=== PATIENT | female | born 1940 | race Caucasian/White ===

== ENCOUNTER 2019-11-23 01:18 | Inpatient (IN) | payer MEDICARE, BC ==
[2019-11-23] VITALS (16 sets, daily range): BP systolic 109–219; BP diastolic 76–102
[~2019-11-23] VITALS: Ht 167.6 cm; Wt 54.0 kg
[2019-11-23] MEDS ORDERED: IV NORMAL SALINE 1000ML BAG 1,000 ML IV SCH (02:00)
[2019-11-23] MEDS ORDERED: MIDAZOLAM HCL 50 MG in IV NORMAL SALINE 50ML 50 ML IV PRN (02:00)
[2019-11-23] MEDS ORDERED: DIGOXIN IV 500 MCG/2 ML AMPUL. IV ONE (02:30)
[2019-11-23] MEDS ORDERED: POLYVINYL ALCOHOL 1.4% OPHTH SOLUTION 15ML BOTTLE. OU PRN (02:30)
[2019-11-23 04:29] LABS: HEMATOCRIT 38.8 % (36.0-47.0); HEMOGLOBIN 13.4 g/dL (12.0-15.5); RED BLOOD COUNT 3.99 x10^6/uL (3.50-5.40); RED CELL DISTRIBUTION WIDTH 13.5 % (11.5-14.5); WHITE BLOOD COUNT 8.9 x10^3/uL (4.0-11.0)
[2019-11-23 04:43] LABS: CALCIUM 8.3 mg/dL (8.5-10.1); CREATININE 0.6 mg/dL (0.6-1.0); GFR 96.7; POTASSIUM 3.7 mmol/L (3.5-5.1)
[2019-11-23] MEDS ORDERED: BUSP10TA PO (05:05)
--- NOTE | 2019-11-23 05:26 | NUR ---
directed admit from [facility]- "mass head bleed". patient is ventilated, sedated with propofol. Pt is unresponsive, no gag Reflex, pupils unequal and non reactive. spoke with family- , At this time they would like to have her cont to be a full code until neurosurgery sees her in am. Once that conversation occurs family will re discuss code status
[2019-11-23] MEDS: PROPOFOL 100 ML IV PRN ×2 (05:45→07:45)
--- NOTE | 2019-11-23 08:29 | RAD ---
PORTABLE CHEST 1V History: Intubation, OG tube Comparison: 11/22/2019 Findings: Single view of the chest is submitted. There is enteric catheter coursing into the region of the stomach. There is endotracheal tube with tip about 3 cm from duyen. Cardiac silhouette is stable. No convincing pneumothorax or significant pleural fluid is identified. There is likely mild left base atelectasis. There is thoracolumbar scoliosis. There is prominent lucency in the visualized abdomen including beneath right hemidiaphragm. Impression: 1. There is prominent abnormal lucency of the visualized abdomen, concerning for free air which would be better evaluated by CT. 2. There is enteric catheter and endotracheal tube as described. Critical results were discussed with patient's nurse Steph at 11/23/2019 8:23 AM, to inform doctor of findings. Electronically signed by: Ralph Parra MD (11/23/2019 8:26 AM) [id number]
[2019-11-23] MEDS ORDERED: FAMOTIDINE 20 MG/2 ML VIAL IVP SCH (09:00)
--- NOTE | 2019-11-23 09:15 | HP ---
ADMIT DATE: 11/23/2019 HISTORY OF PRESENT ILLNESS: The patient is a 79-year-old female patient who apparently was brought to the Emergency Room of [facility] with altered mental status. Apparently, she was watching TV and after her went to the bathroom, her attendant could not find his ; however, he found her unconscious by the closet door. She was having snoring, respiration. Fire and ambulance dispatched to location. The patient received CPR by fire department ambulance at the scene when she had lost the pulse. The patient had return of respirations after CPR. The patient arrived to the Emergency Room with a spontaneous snoring, respiration, tachycardic pulse, has had a nasal trumpet in place. Monitor showed that she has irregular rhythm and rate consistent with atrial fibrillation. She appears to be posturing in a decerebrate pose, no response to noxious stimuli. Her left pupil was dilated, not responsive to light. She also has no gag response. She was intubated and endotracheal tube placement was confirmed by auscultation and chest and abdomen as well as capnography. She apparently had had a CT scan of the head, which showed that the patient has a very large left cerebral hemispheric intraparenchymal hemorrhage with intraventricular extension. The lateral and fourth ventricles are dilated. The suprasellar cistern is partially effaced suggesting developing uncal herniation. There is mass effect with 6 mm of left to right midline shift and the patient was transferred to [facility] Intensive Care Unit to consult the neurologist and neurosurgeon. PAST MEDICAL HISTORY: Significant for hypertension. ALLERGIES: SHE IS ALLERGIC TO SULFA AND CODEINE. MEDICATIONS: She is on no medication at home. FAMILY HISTORY: Noncontributory. SOCIAL HISTORY: She is and lives with her . PHYSICAL EXAMINATION: GENERAL: On arrival to the ICU at [facility], she obviously was unresponsive, intubated, mechanically ventilated and sedated. VITAL SIGNS: Her heart rate on arrival was around 128, irregularly irregular; blood pressure was 157/98; temperature 97.5; respiratory rate was 16 and oxygen saturation was 100% on FiO2 of 40%. HEAD, EYES, EARS, NOSE AND THROAT: Showed normocephalic, atraumatic. She has orotracheal and orogastric tube in place. NECK: Supple. CARDIAC: Normal first and second heart sounds. No gallop, rub or murmur. CHEST: Clear to auscultation. No crepitation or rhonchi. ABDOMEN: Distended, soft, nontender. NEUROLOGIC: Obviously, she is unresponsive to verbal stimulation. She does not open eyes spontaneously. LABORATORY DATA: Her lab work on arrival to the [facility] showed a white cell count of 8900, hemoglobin 13, hematocrit 39, MCV 97 and platelet count of 138,000. Serum sodium was 136, potassium 3.7, chloride 100, bicarbonate 28, anion gap of 8, BUN 20, creatinine 0.6, estimated GFR was 97 mL per minute. Her glucose was 147, calcium was 8.3, magnesium 2. She did have a chest x-ray, which showed that the endotracheal tube is in the right place as well as an NG tube in the stomach, lungs are clear. PLAN: To continue with mechanical ventilation. Await evaluation by the neurologist and neurosurgeon, although her overall prognosis is extremely poor due to massive left-sided intracerebral hemorrhage with uncal herniation. SARAH GARCIA MD DR: AJAY/azucena JOB#: [id number] / [id number]
--- NOTE | 2019-11-23 09:56 | PDOC2 ---
NEUROLOGY CONSULT Date of Admission Date of Admission DATE: 11/23/19 TIME: 09:48 Reason for Consult Reason for Consult: Cerebral hemorrhage Referring Physician Referring Physician: Dr. Garcia Source Source: Caregiver, Chart review History of Present Illness History of Present Illness The patient is a 79-year-old right-handed female whose that her slumped in the closet of their bedroom yesterday evening. She went to the [facility] emergency department and had head CT, as reviewed below. There is no history of stroke, seizure, head injury, but the patient does have hypertension and has been complaining of some headaches recently. Past Medical History Cardiovascular: HTN Past Surgical History Past Surgical History: , Hysterectomy Family History Family History: CVA Social History Social History , no alcohol or tobacco Current Medications Current Medications Current Medications Fentanyl Citrate 30 ml @ 0 mls/hr CONT PRN IV SEE PROTOCOL Last administered on 11/23/19at 02:47; Start 11/23/19 at 02:00 Propofol 100 ml @ 0 mls/hr CONT PRN IV SEE PROTOCOL Last administered on 11/23/19at 07:45; Start 11/23/19 at 02:00 Artificial Tears (Artificial Tears) 1 drop PRN Q1HR PRN OU DRY EYE; Start 11/23/19 at 02:30 Famotidine (Pepcid Vial) 20 mg BID IVP ; Start 11/23/19 at 09:00 Midazolam HCl 50 mg/Sodium Chloride 50 ml @ 0 mls/hr CONT PRN IV SEE PROTOCOL; Start 11/23/19 at 02:00 Sodium Chloride 1,000 ml @ 75 mls/hr [id number] IV Last administered on 11/23/19at 02:52; Start 11/23/19 at 02:00 Digoxin (Lanoxin) 500 mcg 1X ONCE IV Last administered on 11/23/19at 02:53; Start 11/23/19 at 02:30; Stop 11/23/19 at 02:31; Status DC Active Scripts Active Reported Buspirone Hcl 10 Mg Tablet 1 Tab PO BID Allergies Allergies: Coded Allergies: codeine (Verified Allergy, Unknown, 11/23/19) ROS Review of System Negative for fever, chills, weight loss, shortness of breath, chest pain, indigestion, hematochezia, melena, and dysuria. Full 14-point review of systems is negative. Physical Exam Physical Examination General: Well-developed, well-nourished, white female, in no acute distress HEENT: Normocephalic andatraumatic. Temporal arteriespulsatile and nontender. Neck: Supple without bruit, no meningismus Musculoskeletal: Stability:see neurologic. Gait exam:see neurologic. Tone:see neurologic.Strength:see neurologic. Neurological: Mental Status:Intubated, unresponsive. Does not make respiratory efforts for 30 seconds off the ventilator. Cranial Nerves:Pupils unreactive, no extraocular movements, no response to cold calorics or vestibular-ocular testing. Negative corneal reflex. There is no facial asymmetry. All other cranial related problems are negative except as mentioned before.Reflexes:0+ and symmetric with silent plantar responses. Motor: No response to pain. Coordination and gait:Not tested. Sensory:no response Vitals VITALS Vital Signs Date Time Temp Pulse Resp B/P (MAP) Pulse Ox O2 Delivery O2 Flow Rate FiO2 11/23/19 09:29 61 16 204/92 (129) 100 Ventilator 11/23/19 07:00 97.4 97.4 Labs Labs Laboratory Tests Test 11/23/19 04:20 White Blood Count 8.9 x10^3/uL (4.0-11.0) Red Blood Count 3.99 x10^6/uL (3.50-5.40) Hemoglobin 13.4 g/dL (12.0-15.5) Hematocrit 38.8 % (36.0-47.0) Mean Corpuscular Volume 97 fL (79-100) Mean Corpuscular Hemoglobin 34 pg (25-35) Mean Corpuscular Hemoglobin Concent 34 g/dL (31-37) Red Cell Distribution Width 13.5 % (11.5-14.5) Platelet Count 138 x10^3/uL (140-400) Sodium Level 136 mmol/L (136-145) Potassium Level 3.7 mmol/L (3.5-5.1) Chloride Level 100 mmol/L (98-107) Carbon Dioxide Level 28 mmol/L (21-32) Anion Gap 8 (6-14) Blood Urea Nitrogen 20 mg/dL (7-20) Creatinine 0.6 mg/dL (0.6-1.0) Estimated GFR (Cockcroft-Gault) 96.7 Glucose Level 147 mg/dL (70-99) Calcium Level 8.3 mg/dL (8.5-10.1) Magnesium Level 2.0 mg/dL (1.8-2.4) Laboratory Tests Test 11/23/19 04:20 White Blood Count 8.9 x10^3/uL (4.0-11.0) Red Blood Count 3.99 x10^6/uL (3.50-5.40) Hemoglobin 13.4 g/dL (12.0-15.5) Hematocrit 38.8 % (36.0-47.0) Mean Corpuscular Volume 97 fL (79-100) Mean Corpuscular Hemoglobin 34 pg (25-35) Mean Corpuscular Hemoglobin Concent 34 g/dL (31-37) Red Cell Distribution Width 13.5 % (11.5-14.5) Platelet Count 138 x10^3/uL (140-400) Sodium Level 136 mmol/L (136-145) Potassium Level 3.7 mmol/L (3.5-5.1) Chloride Level 100 mmol/L (98-107) Carbon Dioxide Level 28 mmol/L (21-32) Anion Gap 8 (6-14) Blood Urea Nitrogen 20 mg/dL (7-20) Creatinine 0.6 mg/dL (0.6-1.0) Estimated GFR (Cockcroft-Gault) 96.7 Glucose Level 147 mg/dL (70-99) Calcium Level 8.3 mg/dL (8.5-10.1) Magnesium Level 2.0 mg/dL (1.8-2.4) Images Images CT HEAD WITHOUT CONTRAST, [facility], 11/22 History: Comparison: None. Procedure: Axial images are obtained of the head from the skull base through the vertex without IV contrast. Findings: There is a large left cerebral hemisphere intraparenchymal hemorrhage. There is involvement of the left basal ganglia. The hemorrhage measures up to 7.5 cm AP by 5.47 m transverse by 6.7 cm craniocaudal. The hemorrhage has extended into the ventricular system, and both lateral ventricles, third, and fourth ventricles. The lateral ventricles and the fourth ventricle are prominent there is moderate edema surrounding and parenchymal hemorrhage. The suprasellar cistern is partially effaced. There is 6 mm of [id number] midline shift. There is underlying moderate hypoattenuation in the supratentorial white matter probably due to chronic small vessel ischemic disease. Bone windows demonstrate no acute calvarial abnormality. The visualized paranasal sinuses are clear. Mastoid air cells are well aerated. IMPRESSION: There is a very large left cerebral hemisphere intraparenchymal hemorrhage with intraventricular extension. The lateral and fourth ventricles are dilated. The suprasellar cistern is partially effaced suggesting developing uncal herniation. There is mass effect and 6 mm of [id number] midline shift. Assessment/Plan Assessment/Plan Impression: Massive left hemispheric hemorrhage. I believe she is brain , but cannot make this determination now as she is on propofol. Recommendations: Propofol is discontinued, wait 3 hours and then respiratory will perform a 10 minute apnea test. No purpose of repeat head scan, EEG, etc. Fully discussed with patient's family. Thank you for letting me help with the patient's care. WILLIAM RODRIGUEZ MD Nov 23, 2019 09:56
[2019-11-23 10:21] LABS: BASE EXCESS ABG 0 mmol/L (-3-3); HCO3 ABG 24 mmol/L (21-28); PCO2 ABG 40 mmHg (35-46); PO2 ABG 143 mmHg (65-108); SAT O2 ABG 99 % (92-99)
[2019-11-23 10:24] LABS: FIO2 ABG 40
[2019-11-23] MEDS ORDERED: hydrALAZINE 20 MG/ML VIAL. IVP PRN (10:30)
--- NOTE | 2019-11-23 11:40 | NUR ---
APNEA TEST RESULTS: NEGATIVE
[2019-11-23] MEDS ORDERED: MORPHINE SULFATE 4 MG/ML VIAL. IV PRN ×2 (12:00→12:15)
--- NOTE | 2019-11-23 13:28 | NUR ---
Patient's and family decided to withdraw care. Vent was removed, medication administered, 2L NC placed. Patient's TOD 1310 by this RN and Beth Thomas RN. Dr. Garcia, Dr. Serrano, Dr. Dwyer, and Nursing Manager Of Photography notified. Patient's daughter took possession of patient's Rosary beads and wedding ring. Multiple family members were at bedside, tearful, very supportive.
--- NOTE | 2019-11-23 15:44 | PDOC ---
PULMONARY PROGRESS NOTES Vitals Vital Signs Date Time Temp Pulse Resp B/P (MAP) Pulse Ox O2 Delivery O2 Flow Rate FiO2 11/23/19 12:30 98 16 183/82 (115) 100 Ventilator 11/23/19 07:00 97.4 97.4 Labs Laboratory Tests Test 11/23/19 04:20 11/23/19 10:15 White Blood Count 8.9 x10^3/uL (4.0-11.0) Red Blood Count 3.99 x10^6/uL (3.50-5.40) Hemoglobin 13.4 g/dL (12.0-15.5) Hematocrit 38.8 % (36.0-47.0) Mean Corpuscular Volume 97 fL (79-100) Mean Corpuscular Hemoglobin 34 pg (25-35) Mean Corpuscular Hemoglobin Concent 34 g/dL (31-37) Red Cell Distribution Width 13.5 % (11.5-14.5) Platelet Count 138 x10^3/uL (140-400) Sodium Level 136 mmol/L (136-145) Potassium Level 3.7 mmol/L (3.5-5.1) Chloride Level 100 mmol/L (98-107) Carbon Dioxide Level 28 mmol/L (21-32) Anion Gap 8 (6-14) Blood Urea Nitrogen 20 mg/dL (7-20) Creatinine 0.6 mg/dL (0.6-1.0) Estimated GFR (Cockcroft-Gault) 96.7 Glucose Level 147 mg/dL (70-99) Calcium Level 8.3 mg/dL (8.5-10.1) Magnesium Level 2.0 mg/dL (1.8-2.4) O2 Saturation 99 % (92-99) Arterial Blood pH 7.41 (7.35-7.45) Arterial Blood pCO2 at Patient Temp 40 mmHg (35-46) Arterial Blood pO2 at Patient Temp 143 mmHg (65-108) Arterial Blood HCO3 24 mmol/L (21-28) Arterial Blood Base Excess 0 mmol/L (-3-3) FiO2 40 Laboratory Tests Test 11/23/19 04:20 11/23/19 10:15 White Blood Count 8.9 x10^3/uL (4.0-11.0) Red Blood Count 3.99 x10^6/uL (3.50-5.40) Hemoglobin 13.4 g/dL (12.0-15.5) Hematocrit 38.8 % (36.0-47.0) Mean Corpuscular Volume 97 fL (79-100) Mean Corpuscular Hemoglobin 34 pg (25-35) Mean Corpuscular Hemoglobin Concent 34 g/dL (31-37) Red Cell Distribution Width 13.5 % (11.5-14.5) Platelet Count 138 x10^3/uL (140-400) Sodium Level 136 mmol/L (136-145) Potassium Level 3.7 mmol/L (3.5-5.1) Chloride Level 100 mmol/L (98-107) Carbon Dioxide Level 28 mmol/L (21-32) Anion Gap 8 (6-14) Blood Urea Nitrogen 20 mg/dL (7-20) Creatinine 0.6 mg/dL (0.6-1.0) Estimated GFR (Cockcroft-Gault) 96.7 Glucose Level 147 mg/dL (70-99) Calcium Level 8.3 mg/dL (8.5-10.1) Magnesium Level 2.0 mg/dL (1.8-2.4) O2 Saturation 99 % (92-99) Arterial Blood pH 7.41 (7.35-7.45) Arterial Blood pCO2 at Patient Temp 40 mmHg (35-46) Arterial Blood pO2 at Patient Temp 143 mmHg (65-108) Arterial Blood HCO3 24 mmol/L (21-28) Arterial Blood Base Excess 0 mmol/L (-3-3) FiO2 40 Medications Active Scripts Medications Dose Route/Sig Max Daily Dose Days Date Category Buspirone Hcl 10 Mg Tablet 1 Tab PO BID 11/23/19 Reported Impression . LATE ENTRY full note dictated thanks family to withdraw care later today pt seen earlier this am XU MENDEZ MD Nov 23, 2019 15:44
--- NOTE | 2019-11-24 01:02 | CONS ---
DATE OF CONSULTATION: 11/23/2019 ATTENDING PHYSICIAN: Yonis Garcia MD CONSULTING PHYSICIAN: Xu Mendez MD REASON FOR CONSULTATION: The patient seen in pulmonary consultation at the request of Dr. Garcia for vent management. HISTORY OF PRESENT ILLNESS: The patient is a 79-year-old right-handed female that passed out at home. Her found her slumped in the closet. EMS was dispatched. The patient received CPR by EMS and she was successfully resuscitated. Upon arrival to the Emergency Room at [facility], she had some decerebrate posturing. She was nonresponsive to noxious stimuli. Pupils were dilated. The patient had severe respiratory distress. She was intubated. She was transferred to [facility] after undergoing a CT head, which revealed a large cerebellar hemisphere with intraparenchymal hemorrhage and intraventricular extension. The patient has been seen by Dr. Dwyer prior to my evaluation. His impression was massive left hemispheric hemorrhage. He clinically believed that she was brain . I was asked to see the patient in consultation for further evaluation and management. PAST MEDICAL HISTORY: Remarkable for hypertension. PAST SURGICAL HISTORY: None. ALLERGIES: CODEINE. MEDICATIONS: List was reviewed. REVIEW OF SYSTEMS: Unobtainable secondary to the patient's condition. PHYSICAL EXAMINATION: GENERAL: The patient was on mechanical ventilation. I discontinued her from the ventilator. She did assist the ventilator. She had a minimal amount of cough reflex. LUNGS: Clear. No wheezes. CARDIOVASCULAR: Regular rate and rhythm with S1, S2. No S3. ABDOMEN: Soft. EXTREMITIES: No clubbing, cyanosis, or edema. NEUROLOGICAL: The patient did assist the ventilator. She was breathing on her own. Oculocephalic reflexes were absent. Pupillary reflexes were absent. She had dilated pupils. IMPRESSION: 1. Acute respiratory failure secondary to acute intracranial hemorrhage. 2. Acute intracranial hemorrhage. 3. History of hypertension. PLAN: The above was discussed with multiple family members at the bedside. The family is contemplating on the possibility of withdrawing care and allowing natural . I will discuss the above with Dr. Dwyer. I have also reviewed the CT scan findings with the family members. XU MENDEZ MD DR: WINTER/azucena JOB#: [id number] / [id number]
== END 2019-11-23 13:54 | disposition expired | DRG 64 ==
LOC: 1 WEST ICU 01:18
PROVIDERS: ADMIT Internal Medicine; ATTEND Internal Medicine
PROC: 0BH17EZ Insertion of Endotracheal Airway into Trachea, Via Natural or Artificial Opening (ICD-10-PCS; principal; 2019-11-23)
PROC: 5A1935Z Respiratory Ventilation, Less than 24 Consecutive Hours (ICD-10-PCS; 2019-11-23)
DX: I61.5 Nontraumatic intracerebral hemorrhage, intraventricular (principal); J96.00 Acute respiratory failure, unspecified whether with hypoxia or hypercapnia; Z66 Do not resuscitate; I48.91 Unspecified atrial fibrillation; I10 Essential (primary) hypertension; Z88.2 Allergy status to sulfonamides; Z90.710 Acquired absence of both cervix and uterus; Z82.3 Family history of stroke
CPT/HCPCS: 36415; 36600; 71045; 80048; 82805; 83735; 85027; 94002; 94003; J0360; J1160; J2060; J2270; J2704; J3010; J7030; G0378